=== PATIENT | female | born 1990 | race Caucasian/White ===

== ENCOUNTER 2021-01-30 10:19 | Emergency (ER) | payer BC ==
[2021-01-30 10:49] LABS: CHLORIDE,CL 108 mEq/L (98-106); SODIUM,NA 146 mEq/L (136-145)
--- NOTE | 2021-01-30 11:40 | EDM.PDOC ---
ED HPI GENERAL MEDICAL PROBLEM - General Chief Complaint: Abdominal Pain Stated Complaint: abd cramps Time Seen by Provider: 01/30/21 10:30 Source of Information: Reports: Patient History Limitations: Reports: No Limitations - History of Present Illness INITIAL COMMENTS - FREE TEXT/NARRATIVE: Indira is a 30 year old female who presents to ER with complaints of abdominal cramping for the last 4 hours. Did have to crawl under her trailer house yesterday and reconnect a mattress and foundation sewer pipe. Was wearing a respirator mask, not sure if it helped with the fumes. Worried about salmonella. This am, got up at went to work. Started having umbilical area abdominal cramps. Admits wax and wane, "like gas pains". Denies fever. Did have one episode of vomiting. No nausea at present. Had a BM yesterday, normal without blood. Has not felt constipated. Has not yet eaten anything today, has had fluids. No chest discomfort or shortness of breath. Is on Depo Provera, no recent vaginal bleeding. Denies burning with urination. Onset: Today, Gradual Duration: Waxing/Waning Location: Reports: Abdomen Quality: Reports: Ache Severity: Moderate Associated Symptoms: Reports: Nausea/Vomiting. Denies: Confusion, Chest Pain, Cough, Fever/Chills, Loss of Appetite, Malaise, Shortness of Breath Abdominal Pain Score (Numeric/FACES): 7 - Related Data Allergies Allergy/AdvReac Type Severity Reaction Status Date / Time No Known Allergies Allergy Verified 01/30/21 10:19 Home Meds: Home Meds medroxyPROGESTERone Acetate [Depo-Provera] 1 ampule IM Q90D 01/30/21 [History] Past Medical History - Past Health History Medical/Surgical History: Denies Medical/Surgical History Social & Family History - Family History Family Medical History: No Pertinent Family History - Tobacco Use Tobacco Use Status *Q: Never Tobacco User - Recreational Drug Use Recreational Drug Use: No ED ROS GENERAL - Review of Systems Review Of Systems: See Below Constitutional: Denies: Fever, Chills, Malaise, Weakness, Fatigue, Decreased Appetite HEENT: Denies: Ear Pain, Sinus Problem, Throat Pain, Vertigo Respiratory: Denies: Shortness of Breath, Cough Cardiovascular: Denies: Chest Pain, Edema, Lightheadedness Endocrine: Denies: Fatigue GI/Abdominal: Reports: Abdominal Pain, Nausea, Vomiting. Denies: Black Stool, Bloody Stool, Constipation, Diarrhea : Denies: Dysuria, Hematuria Musculoskeletal: Reports: No Symptoms Skin: Reports: No Symptoms Neurological: Reports: No Symptoms ED EXAM, GI/ABD - Physical Exam Exam: See Below Exam Limited By: No Limitations General Appearance: Alert, WD/WN, No Apparent Distress Ears: Normal External Exam, Normal TMs Nose: Normal Inspection, Normal Mucosa, No Blood Throat/Mouth: Normal Inspection, Normal Oropharynx Head: Normocephalic Neck: Normal Inspection, Supple, Non-Tender Respiratory/Chest: No Respiratory Distress, Lungs Clear, Normal Breath Sounds Cardiovascular: Regular Rate, Rhythm GI/Abdominal Exam: Normal Bowel Sounds, Soft, Tender (umbilical area) Extremities: Normal Inspection, No Pedal Edema Neurological: Alert, Oriented Skin Exam: Warm, Dry Course - Vital Signs Last Recorded V/S: Last Vital Signs Temp 98 F 01/30/21 10:20 Pulse 99 01/30/21 10:20 Resp 16 01/30/21 10:20 BP 140/77 01/30/21 10:20 Pulse Ox 100 01/30/21 10:20 - Orders/Labs/Meds Orders: Active Orders 24 hr Category Date Time Status Abdomen 2V AP Flat Upright [CR] Stat Exams 01/30/21 11:32 Taken Labs: Laboratory Tests 01/30/21 01/30/21 01/30/21 Range/Units 10:25 10:25 10:34 WBC 8.7 (5.0-10.0) 10^3/uL RBC 4.85 (4.00-5.50) 10^6/uL Hgb 14.7 (12.0-16.0) g/dL Hct 42.5 (37.0-47.0) % MCV 87.6 (82.0-94.0) fL MCH 30.3 (27.0-32.0) pg MCHC 34.6 (33.0-38.0) g/dL RDW Coeff of Chase 12.6 (11.0-15.0) % Plt Count 353 (150-400) 10^3/uL Neut % (Auto) 68.4 (35-85) % Lymph % (Auto) 25.1 (10-55) % Carver % (Auto) 5.3 (0-16) % Eos % (Auto) 1.1 (0-5) % Baso % (Auto) 0.1 (0-3) % Neut # (Auto) 5.95 (1.80-7.00) 10^3/uL Lymph # (Auto) 2.19 (1.00-4.80) 10^3/uL Carver # (Auto) 0.46 (0.00-0.80) 10^3/uL Eos # (Auto) 0.10 (0.00-0.45) 10^3/uL Baso # (Auto) 0.01 10^3/uL Sodium (136-145) mEq/L Potassium (3.5-5.0) mEq/L Chloride (98-106) mEq/L Carbon Dioxide (21-32) mmol/L BUN (7-18) mg/dL Creatinine (0.6-1.0) mg/dL Est Cr Clr Drug Dosing mL/min Estimated GFR (MDRD) (>=60) mL/min Glucose (75-99) mg/dL Calcium (8.4-10.1) mg/dL Total Bilirubin (0.0-1.0) mg/dL AST (15-37) U/L ALT (12-78) U/L Alkaline Phosphatase (46-116) U/L C-Reactive Protein (0.2-0.8) mg/dL Total Protein (6.4-8.2) g/dL Albumin (3.4-5.0) g/dL Amylase (25-115) U/L Lipase (73-393) U/L Urine Color Yellow (YELLOW) Urine Appearance Clear (CLEAR) Urine pH 5.0 (4.5-8.0) Ur Specific [place] >= 1.030 H (1.003-1.020) Urine Protein Negative (NEGATIVE) mg/dL Urine Glucose (UA) Negative (NEGATIVE) mg/dL Urine Ketones Negative (NEGATIVE) mg/dL Urine Occult Blood Small H (NEGATIVE) Urine Nitrite Negative (NEGATIVE) Urine Bilirubin Negative (NEGATIVE) Urine Urobilinogen 0.2 (0.2-1.0) EU/dL Ur Leukocyte Esterase Trace H (NEGATIVE) Urine RBC 5-10 H (0-5) /HPF Urine WBC 0-5 (0-5) /HPF Ur Epithelial Cells Moderate H (NOT SEEN) /HPF Urine Bacteria Moderate H (NOT SEEN) /HPF Urine Mucus Few H (NOT SEEN) /HPF Urinalysis Comment Urine HCG, Qual Negative 01/30/21 Range/Units 10:34 WBC (5.0-10.0) 10^3/uL RBC (4.00-5.50) 10^6/uL Hgb (12.0-16.0) g/dL Hct (37.0-47.0) % MCV (82.0-94.0) fL MCH (27.0-32.0) pg MCHC (33.0-38.0) g/dL RDW Coeff of [place] (11.0-15.0) % Plt Count (150-400) 10^3/uL Neut % (Auto) (35-85) % Lymph % (Auto) (10-55) % Carver % (Auto) (0-16) % Eos % (Auto) (0-5) % Baso % (Auto) (0-3) % Neut # (Auto) (1.80-7.00) 10^3/uL Lymph # (Auto) (1.00-4.80) 10^3/uL Carver # (Auto) (0.00-0.80) 10^3/uL Eos # (Auto) (0.00-0.45) 10^3/uL Baso # (Auto) 10^3/uL Sodium 146 H (136-145) mEq/L Potassium 3.9 (3.5-5.0) mEq/L Chloride 108 H (98-106) mEq/L Carbon Dioxide 24 (21-32) mmol/L BUN 9 (7-18) mg/dL Creatinine 0.9 (0.6-1.0) mg/dL Est Cr Clr Drug Dosing 84.79 mL/min Estimated GFR (MDRD) > 60 (>=60) mL/min Glucose 98 (75-99) mg/dL Calcium 9.0 (8.4-10.1) mg/dL Total Bilirubin 0.4 (0.0-1.0) mg/dL AST 16 (15-37) U/L ALT 30 (12-78) U/L Alkaline Phosphatase 86 (46-116) U/L C-Reactive Protein < 0.2 L (0.2-0.8) mg/dL Total Protein 7.5 (6.4-8.2) g/dL Albumin 4.2 (3.4-5.0) g/dL Amylase 80 (25-115) U/L Lipase 133 (73-393) U/L Urine Color (YELLOW) Urine Appearance (CLEAR) Urine pH (4.5-8.0) Ur Specific [place] (1.003-1.020) Urine Protein (NEGATIVE) mg/dL Urine Glucose (UA) (NEGATIVE) mg/dL Urine Ketones (NEGATIVE) mg/dL Urine Occult Blood (NEGATIVE) Urine Nitrite (NEGATIVE) Urine Bilirubin (NEGATIVE) Urine Urobilinogen (0.2-1.0) EU/dL Ur Leukocyte Esterase (NEGATIVE) Urine RBC (0-5) /HPF Urine WBC (0-5) /HPF Ur Epithelial Cells (NOT SEEN) /HPF Urine Bacteria (NOT SEEN) /HPF Urine Mucus (NOT SEEN) /HPF Urinalysis Comment Urine HCG, Qual - Re-Assessments/Exams Free Text/Narrative Re-Assessment/Exam: 01/30/21 1110- Labs are all relatively normal. UA positive. HCG negative. Will proceed with abdominal xray. Patient resting comfortably at this time. Denies need med for pain or nausea 01/30/21 12:00 Xray shows moderate amount of stool in right ascending colon, loops of air. Advised patient may need to take Miralax or a stool softener, ambulate a lot today. Will start Bactrim today. Push fluids. Departure - Departure Time of Disposition: 12:03 Disposition: Home, Self-Care 01 Condition: Good Clinical Impression: UTI (urinary tract infection), Ileus - Discharge Information *PRESCRIPTION DRUG MONITORING PROGRAM REVIEWED*: No *COPY OF PRESCRIPTION DRUG MONITORING REPORT IN PATIENT ZHANNA: No Instructions: Urinary Tract Infection, Adult, [id number], Ileus Referrals: Roseline Schrader PA [Primary Care Provider] - Forms: ED Department Discharge Additional Instructions: 1. Push fluids 2. May need to start Miralax or stool softener if unable to resolve abdominal cramping/stools 3. Bactrim DS one twice a day for 5 days total 4. Follow up if persisting pain, nausea/vomiting, develop fever 5. Call with any questions or concerns Sepsis Event Note (ED) - Evaluation Sepsis Screening Result: No Definite Risk - Focused Exam Vital Signs: Vital Signs Temp Pulse Resp BP Pulse Ox 01/30/21 10:20 98 F 99 16 140/77 100 - My Orders Last 24 Hours: My Active Orders 01/30/21 11:32 Abdomen 2V AP Flat Upright [CR] Stat - Assessment/Plan Last 24 Hours: My Active Orders 01/30/21 11:32 Abdomen 2V AP Flat Upright [CR] Stat
[2021-01-30] MEDS ORDERED: Sulfamethoxazole/Trimethoprim 800-160 MG Tab ONE (11:43)
[2021-01-30] MEDS ORDERED: Take Home: Sulfamethoxazole/Trimethoprim 800-160 MG Tab, 2 Tab Pack PO ONE (12:00)
== END 2021-01-30 12:15 | disposition home or self-care (01) ==
LOC: CC.ED 10:19
DX: N39.0 Urinary tract infection, site not specified (principal); K56.7 Ileus, unspecified
CPT/HCPCS: 36415; 74019; 80053; 81001; 81025; 82150; 83690; 85025; 86140; 99284; A9270